=== PATIENT | female | born 1970 | race Caucasian/White ===

== ENCOUNTER 2025-02-12 07:19 | Emergency (ER) | payer MEDICAID, SELFPAY ==
[2025-02-12 07:19] VITALS: BMI 47.8
[2025-02-12 07:25] VITALS: BMI 45.6
[2025-02-12 07:26] VITALS: BP 150/94; PULSE 86; RESP 18; TEMP 36.5; O2SAT 98
--- NOTE | 2025-02-12 07:34 | XR_ITS ---
Examination: CT abdomen and pelvis without contrast. Coronal 3-D reconstructions. Sagittal 2-D reconstructions. Date and time of exam:February 12, 2025 0823 hours INDICATIONS: Epigastric pain beginning 2 days ago CTDI: vol (mGy): 23.7 DLP: (mGycm): 1404 Technique: Axial images of the abdomen have been obtained, 3 mm slice thickness Intravenous contrast material has not been administered. Low dose protocols were performed. One or more of the following dose reduction techniques were used; automated exposure control, adjustment of the mA and/or KV according to patient size, use of iterative reconstruction technique. Findings: Diffuse fatty infiltration throughout the liver Gastric sutures Hepatomegaly 20 cm Splenomegaly AP dimension 13 cm Absent gallbladder No pancreatic or adrenal mass No renal or ureteral calculi, no hydronephrosis Aorta normal size Colonic sutures Scarring in the lower anterior abdominal wall No pericecal inflammatory change No bowel obstruction or diverticulitis Absent uterus Contracted urinary bladder Prominent osteopenia Advanced disc narrowing L4-L5 IMPRESSION: Hepatosplenomegaly No renal or ureteral calculi, no hydronephrosis No CT findings of appendicitis or bowel obstruction
--- NOTE | 2025-02-12 07:34 | PD.EDRME ---
Rapid Medical Screening Exam E Arrival date/time: 02/12/25 07:19 54-year-old female with history of bowel obstruction and multiple surgeries presents with concerns for abdominal pain Chief Complaint: Abdominal Pain Vital signs: Vital Signs Temperature 97.7 F 02/12/25 07:26 Pulse Rate 86 02/12/25 07:26 Respiratory Rate 18 02/12/25 07:26 Blood Pressure 150/94 H 02/12/25 07:26 Pulse Oximetry (%) 98 02/12/25 07:26 Oxygen Delivery Method Room Air 02/12/25 07:26
[2025-02-12 08:11] LABS: Collection Type, Urine Clean Catch
[2025-02-12 08:19] LABS: Basophils # (Auto) 0.1 Thou/mm3 (0.0-0.2); Basophils % (Auto) 1 % (0-2.5); Eosinophils # (Auto) 0.2 Thou/mm3 (0.0-0.5); Eosinophils % (Auto) 2 % (0-10); Hematocrit 41.1 % (36.0-46.0); Hemoglobin 13.8 g/dL (12.0-16.0); Immature Granulocytes Auto 0.03 Thou/mm3 (0.00-0.00); Lymphocytes # (Auto) 2.3 Thou/mm3 (1.0-4.8); Lymphocytes % (Auto) 23 % (10-50); Mean Corpuscular HGB Conc 33.6 g/dl (31.0-37.0); Mean Corpuscular Hemoglobin 27.4 pg (25.0-35.0); Mean Corpuscular Volume 82 fL (80-100); Monocytes # (Auto) 0.7 Thou/mm3 (0.0-0.8); Monocytes % (Auto) 7 % (0-12); Neutrophils # (Auto) 6.5 Thou/mm3 (1.8-7.7); Neutrophils % (Auto) 66 % (37-80); Nucleated Red Blood Cell # 0.00 Thou/mm3 (0.00-0.00); Nucleated Red Blood Cell % 0 /100 WBC (0); Platelet Count 238 Thou/mm3 (140-440); RDW Standard Deviation 39.7 fL (36.4-46.3); Red Blood Count 5.03 Miln/mm3 (4.00-5.20); White Blood Count 9.8 Thou/mm3 (3.6-11.0)
[2025-02-12 08:20] LABS: Bilirubin,Urine Negative (Negative); Blood,Urine Negative (Negative); Clarity,Urine Clear (Clear/Hazy); Color,Urine Lt-Yellow (Lt Yel-Yel); Culture Indicated,Urine Not Indicated; Glucose, Urine Negative (Negative); Ketones,Urine Negative (Negative); Leukocyte Esterase,Urine Positive (Negative); Nitrite,Urine Negative (Negative); PH,Urine 6.0 (5.0-7.0); Protein,Urine Negative (Neg - Trace); RBC,Urine 1 /hpf (0-3); Specific Gravity,Urine 1.020 (1.001-1.035); Squamous Epithelial Cell,Urine 1 /hpf (0-5); Urobilinogen,Urine Negative mg/dL (0.0-1.0); WBC,Urine 3 /hpf (0-5)
[2025-02-12 08:31] LABS: Alanine Aminotransferase 15 U/L (10-49); Albumin, Serum 4.5 gm/dL (3.5-5.0); Albumin/Globulin Ratio 1.5 (1.2-2.2); Alkaline Phosphatase 146 U/L (46-116); Anion Gap 11 (7-16); Aspartate Amino Transferase 21 U/L (0-34); BUN/Creatinine Ratio 12 Ratio (12-20); Bilirubin,Total 0.5 mg/dL (0.3-1.2); Blood Urea Nitrogen 11 mg/dL (9-23); Calcium 9.1 mg/dL (8.3-10.6); Calcium (Corrected) 9.1 mg/dL (8.5-10.1); Carbon Dioxide 24.0 mMol/L (20.0-31.0); Chloride 105 mMol/L (98-107); Creatinine (Component) 0.9 mg/dL (0.6-1.3); Estimated Creatinine Clearance 95.7 mL/min (>60); Globulin 3.0 gm/dL (2.3-3.5); Glucose 108 mg/dL (74-106); Lipase 25 U/L (12-53); Osmolality,Calculated 279 (275-295); Potassium 4.1 mMol/L (3.4-5.1); Sodium 140 mMol/L (136-145); Total Protein 7.5 gm/dL (5.7-8.2); eGFR > 60 See Note
--- NOTE | 2025-02-12 09:23 | EDNOTE_ITS ---
ED General RME/HPI General Chief complaint: Abdominal Pain Stated complaint: BOWEL OBSTRUCTION Time Seen by Provider: 02/12/25 09:20 Arrival date/time: 02/12/25 07:19 RME / HPI RME / HPI narrative: 02/12/25 07:19 54-year-old female with history of bowel obstruction and multiple surgeries presents with concerns for abdominal pain Related Data Previous Rx's ?Medication ?Instructions ?Recorded ondansetron 8 mg disintegrating 8 mg PO Q8H PRN nausea and 02/12/25 tablet vomiting #30 tabs Allergies Allergy/AdvReac Type Severity Reaction Status Date / Time vancomycin Allergy Severe Hives Verified 02/12/25 09:22 Review of Systems Review of Systems Systems Reviewed: All systems reviewed, normal except as documented ED Exam Narrative Physical exam: GENERAL: NAD, AAOx3, obese HEENT: Moist mucosa. Eyes open, symmetrical, & clear CARDIO: Heart RRR, no obvious murmurs PULM: No noted coughing/dyspnea CTA B/L, no R/W/R GI: Abdomen soft, nondistended, all 4 quadrants with pain on palpation more pronounced in RLQ. hypoactive bowel sounds SKIN/MSK/EXT: No wounds/rashes/edema/amputations, no pain on palpation. Pedal pulses present B/L NEURO: AAOx3, no focal neuro deficits, able to move all 4 extremities Course Course Course Narrative: see MDM Quality Measures none Orders Category Date Time Status CT abdomen pelvis wo con Stat Exams 02/12/25 07:34 Completed CBC Stat Lab 02/12/25 08:02 Completed Comprehensive Metabolic Panel Stat Lab 02/12/25 08:02 Completed Lactic Acid [Lactate (Lactic Acid)] Stat Lab 02/12/25 09:50 Completed Lipase Stat Lab 02/12/25 08:02 Completed UA, C/S IF [Urinalysis, C/S if Indicated] Stat Lab 02/12/25 08:00 Completed Morphine Inj Med 02/12/25 09:28 Discontinued 4 mg IVP X1 ONE Ondansetron Inj [Zofran Inj] Med 02/12/25 09:56 Discontinued 4 mg IVP Q1H PRN Vital Signs Vital signs: Vital Signs Temperature 97.7 F 02/12/25 07:26 Pulse Rate 86 02/12/25 07:26 Respiratory Rate 18 07/15/25 07:26 Blood Pressure 150/94 H 02/12/25 07:26 Pulse Oximetry (%) 98 02/12/25 07:26 Oxygen Delivery Method Room Air 02/12/25 07:26 Discharge Plan Plan Patient Disposition: HOME (Self Care) Prescriptions/Referrals Prescriptions/Med Rec: New ondansetron 8 mg tablet,disintegrating 8 mg PO Q8H PRN (Reason: nausea and vomiting) Qty: 30 0RF Referrals: No Primary/Family,Physician [Primary Care Provider] - In 1 week Problem List Clinical Impression: Abdominal pain Patient/Caregiver Discharge Instructions Additional Instructions: Follow up with your primary care physician within 1 week of discharge Your work up here in the ER is negative including imaging studies, lab work You will be discharged with antinausea medications. Should your symptoms recur or worsen patient is instructed to return to the ER. Print Language: Albanian Stand Alone Forms: [facility] 911 Award Info., Patient Portal Info Letter MDM Narrative MDM hospital course: 54 y/o F with PMHx of Hypertension, multiple abdominal surgeries including: hernia repair, bowel resection, s/p ileostomy removal, ?Ulcerative colitis?, C- sections, hysterectomy, hx of SBO(x3) presented here to the ED due to abdominal pain. Patient states she woke up in the middle of the night with sudden onset abdominal pain across all 4 quadrants more pronounced in the lower quadrants. She also endorses some nausea and took some nausea meds at home but no vomiting. She endorses starting Wegovy shots around 3 weeks ago as well as recent surgery around 3 months ago. Denies fever, chills, chest pain, shortness of breath, vomiting, recent travel, sick contacts. 0932: CBC, CMP, UA unremarkable, CT abdomen pelvis pending, morphine 4mg IV x1 given 1038: CT abdomen pelvis negative for bowel obstruction, appendicitis All workup here in the ER negative symptoms have improved. Patient is able to be discharged safely at this time with strict return precautions Patient instructed to return to the ER should her symptoms recur or worsen. Clinical Information Provided by patient Medical Records Reviewed [facility] Lab Interpretation Labs: interpreted by me Lab(s) interpretation(s): CBC, CMP unremarkable Imaging Imaging interpretation: see narrative above Radiology reports / interpretation(s): See radiology report Medication Administration(s) Medication Administration History Discontinued Medications Morphine Sulfate (Morphine Sulf Inj 10 Mg/Ml Vial) 4 mg IVP X1 ONE Stop: 02/12/25 09:29 Last Admin: 02/12/25 09:41 Dose: 4 mg Documented By: VL Ondansetron HCl (Ondansetron Inj 2 Mg/Ml Inj 2 Ml) 4 mg IVP Q1H PRN PRN Reason: PERSISTENT NAUSEA OR VOMITING Last Admin: 02/12/25 10:23 Dose: 4 mg Documented By: VL See above Diagnosis Differential diagnosis: SBO, peritonitis, stool impaction Dispositon Disposition: Discharge Home
[2025-02-12] MEDS: MORPHINE SULF INJ 10 MG/ML VIAL 4 MG IVP (09:41)
[2025-02-12 09:44] VITALS: BP 122/71; PULSE 84; RESP 19; TEMP 36.8; O2SAT 100
[2025-02-12 09:56] LABS: Lactate (Lactic Acid) 1.3 mMol/L (0.4-2.0)
[2025-02-12 10:07] VITALS: BP 113/84; PULSE 79; RESP 19; TEMP 36.7; O2SAT 100
[2025-02-12] MEDS: ONDANSETRON INJ 2 MG/ML INJ 2 ML 4 MG IVP (10:23)
== END 2025-02-12 11:30 | disposition home or self-care (01) ==
PROVIDERS: Nurse Practitioner Primary Care; Emergency Provider Student in an Organized Health Care Education/Training Program
DX: R10.84 Generalized abdominal pain (principal); R16.2 Hepatomegaly with splenomegaly, not elsewhere classified
CPT/HCPCS: 36415; 74176; 80053; 81001; 83605; 83690; 85025; 96374; 96375; 99283; J2270; J2405

== ENCOUNTER 2025-02-16 11:24 | Emergency (ER) | payer MEDICAID, SELFPAY ==
[2025-02-16 11:50] VITALS: BP 158/84; PULSE 90; RESP 19; TEMP 36.9; O2SAT 99; BMI 50.4
--- NOTE | 2025-02-16 11:59 | XR_ITS ---
Examination: PA lateral chest 2 views Technique: Upright PA lateral chest 2 views Date and time: February 16, 2025, 12:24 PM Indications: Shortness of breath coughing beginning 2 days ago. Findings: Heart size. The lungs are clear. Moderate osteopenia. Impression: No active disease.
[2025-02-16] MEDS: ALBUTEROL/IPRATROPIUM (Duoneb) RT SOL 3 ML NEBU INH (12:45)
[2025-02-16 12:49] VITALS: PULSE 92; RESP 18; O2SAT 100
--- NOTE | 2025-02-16 13:32 | EDNOTE_ITS ---
Upper Respiratory Inf. RME/HPI General Chief Complaint: Flu Like Symptoms Stated Complaint: Cough, sinuses hurt Time Seen by Provider: 02/16/25 11:35 Source: patient Arrival date/time: 02/16/25 11:24 This is a 54-year-old female presents to the emergency department complaints of intermittent cough, sinus congestion for 3 days. Denies fever, chills no rigors. Mode of arrival: ambulatory Related Data Previous Rx's ?Medication ?Instructions ?Recorded ondansetron 8 mg disintegrating 8 mg PO Q8H PRN nausea and 02/12/25 tablet vomiting #30 tabs amoxicillin 875 mg-potassium 1 tab PO BID #14 tabs clavulanate 125 mg tablet promethazine-DM 6.25 mg-15 mg/5 mL 5 ml PO Q6H PRN cou gh #473 mL 02/16/25 oral syrup Allergies Allergy/AdvReac Type Severity Reaction Status Date / Time vancomycin Allergy Severe Hives Verified 02/16/25 11:26 Review of Systems Review of Systems Systems Reviewed: All systems reviewed, normal except as documented Narrative Review of Systems: Gen: No fever, no chills, no weight loss EYES: No discharge, no visual changes, no pain HEENT: No ear pain, no congestion, no sore throat PULM: + shortness of breath, +cough, no congestion CV: No chest pain, no dyspnea on exertion, no palpitations GI: No nausea, no vomiting, no diarrhea, no pain, no constipation : No frequency, no urgency,? no dysuria Musc/skel: No joint pain, no back pain Skin: No rash? Psyc: No hallucinations, no depression Heme/Lymph: No easy bleeding or bruising tendencies Neuro: No weakness, no headache ED Exam Narrative Physical exam: General: Sittiing in Exam table in no acute distress, answering questions appropriately HENT: normocephalic, atraumatic, EOMI, PERRLA, moist mucous membranes Chest: chest wall is nontender Cardiac: regular rate and rhythm, normal S1 and S2, no murmurs, rubs, or gallops, capillary refill ?2 seconds Pulmonary: clear to auscultation bilaterally, no wheezing, crackles, or rhonchi Abdominal: active bowel sounds, soft, nontender, nondistended Neuro: A&OX3, CN II-XII intact, sensation grossly intact bilaterally in UE and LE. Skin: no rashes, no ecchymosis Ext: no lower extremity edema Course Quality Measures none Orders Category Date Time Status Bedside COVID-19 Antigen Test NOW Care 02/16/25 11:59 Completed XR chest 2V Stat Exams 02/16/25 11:59 Completed Albuterol/Ipratr Rt Ghazala [Duoneb Rt Ghazala] Med 02/16/25 11:59 Discontinued 3 ml INH X1 ONE predniSONE Med 02/16/25 11:59 Discontinued 60 mg PO X1 ONE Vital Signs Vital signs: Vital Signs Temperature 98.5 F 02/16/25 11:50 Pulse Rate 90 02/16/25 11:50 Respiratory Rate 19 02/16/25 11:50 Blood Pressure 158/84 H 02/16/25 11:50 Pulse Oximetry (%) 99 02/16/25 11:50 Oxygen Delivery Method Room Air 02/16/25 11:50 Upper Respiratory Infection Patient data External records reviewed:: [facility] previous records Clinical information provided by:: patient Social determinants that could affect healthcare access:: none Patient has the following chronic illnesses:: no How is presenting disease/condition affected by chronic disease/condition?: no chronic disease Evaluation data The following diagnostics were reviewed and interpreted by me:: lab results Lab and/or radiology exams considered but not ordered:: no Interpretation Summary: Mild bronchitis pattern pending radiologist reading. Examination: PA lateral chest 2 views Technique: Upright PA lateral chest 2 views Date and time: February 16, 2025, 12:24 PM Indications: Shortness of breath coughing beginning 2 days ago. Findings: Heart size. The lungs are clear. Moderate osteopenia. Impression: No active disease. Medications / Prescriptions Medications or Prescriptions considered but not ordered:: no Medication administrations:: Medication Administration History Discontinued Medications Albuterol/Ipratropium (Albuterol/Ipratropium (Duoneb) Rt Ghazala 3 Ml Nebu) 3 ml INH X1 ONE Stop: 02/16/25 12:00 Last Admin: 02/16/25 12:45 Dose: 3 ml Documented By: ANGELI Prednisone (Prednisone 20 Mg Tablet) 60 mg PO X1 ONE Stop: 02/16/25 12:00 Last Admin: 02/16/25 12:46 Dose: 60 mg Documented By: MARIA ELENA All medications administered and effective Consultations Consultation(s) initiated? (list below): No Diagnosis Upper Respiratory Differential Diagnosis: upper respiratory infection, sinusitis, viral infection, bronchitis, influenza and pharyngitis Most likely diagnosis given after review of the tests above:: Bronchitis. Admission Indicated Admission indicated?: not indicated Admission Request Was there a request for admission?: No Disposition Plan Disposition Plan: Discharge Discharge Attestation Discharge Attestation: The patient and all family members were given an opportunity to ask questions and understood the discharge instructions. Discharge instructions specifically effects, indications for sooner follow up or return to the emergency department, and the expected course of current diagnosis. Patient condition: Stable Discharge Plan Plan Patient Disposition: HOME (Self Care) Prescriptions/Referrals Prescriptions/Med Rec: New amoxicillin-pot clavulanate 875-125 mg tablet 1 tab PO BID Qty: 14 0RF promethazine-DM 6.25-15 mg/5 mL syrup 5 ml PO Q6H PRN (Reason: cough) Qty: 473 0RF No Action ondansetron 8 mg tablet,disintegrating 8 mg PO Q8H PRN (Reason: nausea and vomiting) Qty: 30 0RF Referrals: No Primary/Family,Physician [Primary Care Provider] - In 1 week Problem List Clinical Impression: Bronchitis Patient/Caregiver Discharge Instructions Discharge Activity: activity as tolerated Education Materials: ED Upper Resp Infec Abx Tx Additional Instructions: Please make sure you follow-up with your primary doctor. Start antibiotics as directed. Cough syrup was sent to the pharmacy. If any worsening symptoms please return to the emergency department for reevaluation. Print Language: Yoruba Stand Alone Forms: [facility] Award Info., Patient Portal Info Letter PA/EVIDENCE SPECIALIST Supervising Physician PA/JOHN Supervising Physician: Dr mock
== END 2025-02-16 14:23 | disposition home or self-care (01) ==
PROVIDERS: Emergency Provider Family Medicine
DX: J40 Bronchitis, not specified as acute or chronic (principal)
CPT/HCPCS: 71046; 87811; 94640; 99283; A9270; J7512

== ENCOUNTER 2025-02-19 13:53 | Emergency (ER) | payer MEDICAID, SELFPAY ==
[2025-02-19 14:44] VITALS: BP 149/75; PULSE 115; RESP 18; TEMP 36.8; O2SAT 97; BMI 48.6
--- NOTE | 2025-02-19 14:54 | XR_ITS ---
Examination: PA lateral chest 2 views TECHNIQUE: Upright PA lateral chest 2 views Date and time: February 19, 2025 1501 hours INDICATIONS: Coughing chest pain beginning one week ago FINDINGS: Normal heart size. Lungs are clear. The osseous structures are intact IMPRESSION: No active disease
--- NOTE | 2025-02-19 14:54 | EKG_ITS ---
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
--- NOTE | 2025-02-19 14:54 | PD.EDRME ---
Rapid Medical Screening Exam E Arrival date/time: 02/19/25 13:53 54-year-old female presents emergency department today for complaint of cough, congestion body aches sinus pressure and pain ongoing for the last 3 days Chief Complaint: Flu Like Symptoms Vital signs: Vital Signs Temperature 98.2 F 02/19/25 14:44 Pulse Rate 115 H 02/19/25 14:44 Respiratory Rate 18 02/19/25 14:44 Blood Pressure 149/75 H 02/19/25 14:44 Pulse Oximetry (%) 97 02/19/25 14:44 Oxygen Delivery Method Room Air 02/19/25 14:44
[2025-02-19 16:18] LABS: Basophils # (Auto) 0.1 Thou/mm3 (0.0-0.2); Basophils % (Auto) 1 % (0-2.5); Eosinophils # (Auto) 0.3 Thou/mm3 (0.0-0.5); Eosinophils % (Auto) 2 % (0-10); Hematocrit 39.3 % (36.0-46.0); Hemoglobin 13.4 g/dL (12.0-16.0); Immature Granulocytes Auto 0.04 Thou/mm3 (0.00-0.00); Lymphocytes # (Auto) 2.7 Thou/mm3 (1.0-4.8); Lymphocytes % (Auto) 22 % (10-50); Mean Corpuscular HGB Conc 34.1 g/dl (31.0-37.0); Mean Corpuscular Hemoglobin 27.7 pg (25.0-35.0); Mean Corpuscular Volume 81 fL (80-100); Monocytes # (Auto) 1.0 Thou/mm3 (0.0-0.8); Monocytes % (Auto) 8 % (0-12); Neutrophils # (Auto) 8.4 Thou/mm3 (1.8-7.7); Neutrophils % (Auto) 67 % (37-80); Nucleated Red Blood Cell # 0.00 Thou/mm3 (0.00-0.00); Nucleated Red Blood Cell % 0 /100 WBC (0); Platelet Count 292 Thou/mm3 (140-440); RDW Standard Deviation 39.9 fL (36.4-46.3); Red Blood Count 4.84 Miln/mm3 (4.00-5.20); White Blood Count 12.6 Thou/mm3 (3.6-11.0)
[2025-02-19 16:39] LABS: Alanine Aminotransferase 14 U/L (10-49); Albumin, Serum 4.6 gm/dL (3.5-5.0); Albumin/Globulin Ratio 1.5 (1.2-2.2); Alkaline Phosphatase 164 U/L (46-116); Anion Gap 11 (7-16); Aspartate Amino Transferase 13 U/L (0-34); BUN/Creatinine Ratio 11 Ratio (12-20); Bilirubin,Total 0.5 mg/dL (0.3-1.2); Blood Urea Nitrogen 10 mg/dL (9-23); Calcium 9.4 mg/dL (8.3-10.6); Calcium (Corrected) 9.4 mg/dL (8.5-10.1); Carbon Dioxide 28.2 mMol/L (20.0-31.0); Chloride 100 mMol/L (98-107); Creatinine (Component) 0.9 mg/dL (0.6-1.3); Estimated Creatinine Clearance 89.6 mL/min (>60); Globulin 3.1 gm/dL (2.3-3.5); Glucose 101 mg/dL (74-106); Osmolality,Calculated 276 (275-295); Potassium 3.3 mMol/L (3.4-5.1); Sodium 139 mMol/L (136-145); Total Protein 7.7 gm/dL (5.7-8.2); Troponin I < 0.002 ng/mL (0.0-0.045); eGFR > 60 See Note
[2025-02-19 20:24] VITALS: BP 158/91; PULSE 98; RESP 18; TEMP 36.6; O2SAT 98
--- NOTE | 2025-02-19 20:34 | PD.EDURI ---
Upper Respiratory Inf. RME/HPI General Chief Complaint: Flu Like Symptoms Stated Complaint: Cough, sinus pain Time Seen by Provider: 02/19/25 20:22 Arrival date/time: 02/19/25 13:53 Limitations: no limitations RME / HPI RME / HPI Narrative: 54-year-old female history of asthma is here today with a 6-day history of sinus congestion cough, and wheezing. She seen here 3 days ago and discharged with a prescription of Augmentin. She is here today as her symptoms have not resolved. She has no other acute complaints or concerns. Related Data Previous Rx's ?Medication ?Instructions ?Recorded ondansetron 8 mg disintegrating 8 mg PO Q8H PRN nausea and 02/12/25 tablet vomiting #30 tabs amoxicillin 875 mg-potassium 1 tab PO BID #14 tabs 02/16/25 clavulanate 125 mg tablet promethazine-DM 6.25 mg-15 mg/5 mL 5 ml PO Q6H PRN cough #473 mL 02/16/25 oral syrup ipratropium 0.5 mg-albuterol 3 mg 3 ml inhalation QID PRN wheezing 02/19/25 (2.5 mg base)/3 mL nebulization #90 mL soln prednisone 50 mg tablet 50 mg PO QDAY #5 tabs 02/19/25 Allergies Allergy/AdvReac Type Severity Reaction Status Date / Time vancomycin Allergy Severe Hives Verified 02/19/25 13:57 Review of Systems Review of Systems Systems Reviewed: All systems reviewed, normal except as documented ED Exam General Limitations: Present no limitations General appearance: Present alert and in no apparent distress Head Head exam: Present atraumatic Eye Eye exam: Present normal appearance, PERRL and EOMI ENT ENT exam: Present normal exam, normal oropharynx and mucous membranes moist Neck Neck exam: Present normal inspection, full ROM and trachea midline Chest Chest inspection: Present normal inspection and symmetric chest wall rise Respiratory Respiratory exam: Present normal lung sounds bilaterally Cardiovascular Cardiovascular exam: Present regular rate, normal rhythm and normal heart sounds Abdominal Exam Abdominal exam: Present soft and normal bowel sounds Extremities Exam Extremities exam: Present normal inspection and full ROM Back Exam Back exam: Present normal inspection and full ROM Neurological Exam Neurological exam: Present alert and oriented X3 Psychiatric Psychiatric exam: Present normal affect and normal mood Skin Skin exam: Present warm, dry, intact and normal color Course Quality Measures none Orders Category Date Time Status Bedside COVID-19 Antigen Test NOW Care 02/19/25 14:54 Active Bedside Influenza A&B Antigen Test NOW Care 02/19/25 14:54 Completed EKG (ED ONLY) *Do not use* NOW Care 02/19/25 14:54 Completed EKG (ED Only) Stat Exams 02/19/25 14:54 Draft XR chest 2V Stat Exams 02/19/25 14:54 Completed CBC Stat Lab 02/19/25 16:00 Completed Comprehensive Metabolic Panel Stat Lab 02/19/25 16:00 Completed Troponin I Stat Lab 02/19/25 16:00 Completed Vital Signs Vital signs: Vital Signs Temperature 98.2 F 02/19/25 14:44 Pulse Rate 115 H 02/19/25 14:44 Respiratory Rate 18 02/19/25 14:44 Blood Pressure 149/75 H 02/19/25 14:44 Pulse Oximetry (%) 97 02/19/25 14:44 Oxygen Delivery Method Room Air 02/19/25 14:44 Upper Respiratory Infection MDM Narrative MDM Narrative:: 54-year-old female history of asthma is here today with a 6-day history of sinus congestion cough, and wheezing. She seen here 3 days ago and discharged with a prescription of Augmentin. She is here today as her symptoms have not resolved. She has no other acute complaints or concerns. On exam patient is nontoxic-appearing in no visible signs of distress. She has no respiratory compromise. She has very mild expiratory wheezes. Reviewed the past chart notes and believe her care is appropriate. Patient did request refills of her DuoNeb. She will also be discharged with a prescription of a 5-day burst of prednisone. She agrees to use a provide medications. Return for worse emergent changes Patient data External records reviewed:: None Clinical information provided by:: patient Social determinants that could affect healthcare access:: none Patient has the following chronic illnesses:: Asthma How is presenting disease/condition affected by chronic disease/condition?: exacerbated by Evaluation data The following diagnostics were reviewed and interpreted by me:: lab results (She has a mild leukocytosis of 12.6 K, labs are otherwise unremarkable), radiology exam(s) (Clear and expanded lungs without any mass or infiltrate) and EKG tracing(s) (Status tachycardia [address] changes dynamic T waves.) Lab and/or radiology exams considered but not ordered:: n/a Interpretation Summary: Mild leukocytosis, otherwise unremarkable, COVID and influenza screens are negative Medications / Prescriptions Medications or Prescriptions considered but not ordered:: n/a Medication administrations:: n/a Consultations Consultation(s) initiated? (list below): No Diagnosis Upper Respiratory Differential Diagnosis: upper respiratory infection, sinusitis, viral infection, bronchitis and influenza Most likely diagnosis given after review of the tests above:: Acute bronchitis Admission Indicated Admission indicated?: not indicated Admission Request Was there a request for admission?: No Disposition Plan Disposition Plan: Discharge Discharge Attestation Discharge Attestation: The patient and all family members were given an opportunity to ask questions and understood the discharge instructions. Discharge instructions specifically effects, indications for sooner follow up or return to the emergency department, and the expected course of current diagnosis. Patient condition: Stable Discharge Plan Plan Patient Disposition: HOME (Self Care) Patient condition on transfer: Stable Prescriptions/Referrals Prescriptions/Med Rec: New prednisone 50 mg tablet 50 mg PO QDAY Qty: 5 0RF ipratropium-albuterol 0.5 mg-3 mg(2.5 mg base)/3 mL solution for nebulization 3 ml inhalation QID PRN (Reason: wheezing) Qty: 90 0RF No Action ondansetron 8 mg tablet,disintegrating 8 mg PO Q8H PRN (Reason: nausea and vomiting) Qty: 30 0RF amoxicillin-pot clavulanate 875-125 mg tablet 1 tab PO BID Qty: 14 0RF promethazine-DM 6.25-15 mg/5 mL syrup 5 ml PO Q6H PRN (Reason: cough) Qty: 473 0RF Referrals: No Primary/Family,Physician [Primary Care Provider] - In 1 week Problem List Clinical Impression: Acute bronchitis Patient/Caregiver Discharge Instructions Education Materials: Acute Bronchitis Additional Instructions: - Continue taking your prescribed antibiotics. - We will provide refills for your nebulizer. - We will also start you on a 5-day course of prednisone. - Please follow-up with your clinic within the next week for recheck. - Return to the emergency room at anytime for any worsening or emergent changes. Print Language: Ecuadorean Stand Alone Forms: [facility] Award Info., Patient Portal Info Letter
[2025-02-19 20:43] VITALS: PULSE 76; O2SAT 99
== END 2025-02-19 20:43 | disposition home or self-care (01) ==
PROVIDERS: Nurse Practitioner Primary Care; Emergency Provider Emergency Medicine
DX: J20.9 Acute bronchitis, unspecified (principal); R94.31 Abnormal electrocardiogram [ECG] [EKG]; R00.0 Tachycardia, unspecified
CPT/HCPCS: 36415; 71046; 80053; 84484; 85025; 87400; 87811; 93005; 99283

== ENCOUNTER 2025-02-26 19:59 | Emergency (ER) | payer MEDICAID, SELFPAY ==
[2025-02-26 20:00] VITALS: BMI 47.8
[2025-02-26 20:23] VITALS: BP 150/98; PULSE 89; RESP 20; TEMP 37.1; O2SAT 98
--- NOTE | 2025-02-26 21:23 | PD.EDADULT ---
ED General RME/HPI General Chief complaint: General Adult/Misc Complain Stated complaint: COUGH, HEADACHE Time Seen by Provider: 02/26/25 20:49 Arrival date/time: 02/26/25 19:59 RME / HPI RME / HPI narrative: 54-year-old female presents to the ED for her third visit for sinus issues for the past 10 days. She took a course of Augmentin, twice daily for 1 week. She is also using DuoNeb and her nebulizer twice daily. She was given a burst therapy of prednisone 50 mg daily x 5 days. She continues to have severe nasal and sinus congestion with bad cough and the feeling of passing out after she coughs. She is also feeling some tingling to her face after spasmodic coughing attacks. She is only using her albuterol inhaler, twice daily. She takes Angelica once daily as well as Singulair once daily in the evening. She does not use any nasal sprays. She denies any fever or chills, ear pain or sore throat. She states her cough is positive for white to yellow sputum production. Related Data Previous Rx's ?Medication ?Instructions ?Recorded ondansetron 8 mg disintegrating 8 mg PO Q8H PRN nausea and 02/12/25 tablet vomiting #30 tabs amoxicillin 875 mg-potassium 1 tab PO BID #14 tabs 02/16/25 clavulanate 125 mg tablet promethazine-DM 6.25 mg-15 mg/5 mL 5 ml PO Q6H PRN cough #473 mL 02/16/25 oral syrup ipratropium 0.5 mg-albuterol 3 mg 3 ml inhalation QID PRN wheezing 02/19/25 (2.5 mg base)/3 mL nebulization #90 mL soln prednisone 50 mg tablet 50 mg PO QDAY #5 tabs 02/19/25 fluticasone propionate 50 2 spray intranasal QDAY #11 mL 02/26/25 mcg/actuation nasal spray,suspension (Flonase Allergy Relief) levofloxacin 500 mg tablet 500 mg PO Q24H 14 days #14 tabs 02/26/25 Allergies Allergy/AdvReac Type Severity Reaction Status Date / Time vancomycin Allergy Severe Hives Verified 02/26/25 19:59 Review of Systems Review of Systems Systems Reviewed: All systems reviewed, normal except as documented Past Medical History Past Medical History CARDIAC: Positive Hypertension; Negative Congestive Heart Failure RESPIRATORY: Positive Asthma; Negative Chronic Obstructive Pulmonary Disease (COPD) GASTROINTESTINAL: Positive Ulcerative Colitis, Obstructive Bowel (x3) and Gastroesophageal Reflux Disease GENITOURINARY: Negative Renal Disease ENDOCRINE: Negative Diabetes Mellitus Type 1 or Diabetes Mellitus Type 2 OTHER HISTORY: Negative Cancer Surgical History SURGICAL: Positive Abdominal Surgery (ileostomy) and Hysterectomy Social History SMOKING STATUS: Never smoker ED Exam Narrative Physical exam: A&O, afebrile and non-toxic appearing 54-year-old female, mild acute distress. TMs are without erythema. Nares are very swollen with erythema. Tender maxillary and frontal sinuses bilaterally. Lung sounds are clear, RRR, Abdomen is non-distended. Moves all extremities well. Course Course Course Narrative: Patient has failed outpatient treatment with Augmentin 875 mg twice daily for 7 days, as well as prednisone 50 mg p.o. daily x 5 days. Patient will be changed to Levaquin 500 mg once daily for 10 days. She will also be given a prescription for Flonase nasal spray. She was advised to take the Angelica in the morning and Benadryl at bedtime. She was also advised to utilize her albuterol inhaler more often to help control her cough. She has had 2 chest x-rays in the past 10 days which were both negative for acute disease. She has been tested for COVID and influenza on 02/19/2025 which were all negative. Patient was given her first dose of Levaquin 500 mg prior to her discharge. Quality Measures none Vital Signs Vital signs: Vital Signs Temperature 98.8 F 02/26/25 20:23 Pulse Rate 89 02/26/25 20:23 Respiratory Rate 20 02/26/25 20:23 Blood Pressure 150/98 H 02/26/25 20:23 Pulse Oximetry (%) 98 02/26/25 20:23 Oxygen Delivery Method Room Air 02/26/25 20:23 Discharge Plan Plan Patient Disposition: HOME (Self Care) Discharge Disposition comment: Stable Prescriptions/Referrals Prescriptions/Med Rec: New levofloxacin 500 mg tablet 500 mg PO Q24H 14 Days Qty: 14 0RF fluticasone propionate [Flonase Allergy Relief] 50 mcg/actuation spray,suspension 2 spray intranasal QDAY Qty: 11 0RF Rx Instructions: administer into each nostril No Action prednisone 50 mg tablet 50 mg PO QDAY Qty: 5 0RF ipratropium-albuterol 0.5 mg-3 mg(2.5 mg base)/3 mL solution for nebulization 3 ml inhalation QID PRN (Reason: wheezing) Qty: 90 0RF ondansetron 8 mg tablet,disintegrating 8 mg PO Q8H PRN (Reason: nausea and vomiting) Qty: 30 0RF amoxicillin-pot clavulanate 875-125 mg tablet 1 tab PO BID Qty: 14 0RF promethazine-DM 6.25-15 mg/5 mL syrup 5 ml PO Q6H PRN (Reason: cough) Qty: 473 0RF Referrals: No Primary/Family,Physician [Primary Care Provider] - In 1 week Problem List Clinical Impression: Sinusitis Patient/Caregiver Discharge Instructions Education Materials: ED Sinusitis (Antibiotic Treatment) Additional Instructions: Take the antibiotics as prescribed and complete the course even though you may be feeling better. Follow-up with your primary care physician in 24 to 48 hours. Return to the ED for any new or worsening symptoms. Print Language: [place] Stand Alone Forms: [employer] Info., Patient Portal Info Letter PA/BUSINESS OFFICE TECHNOLOGY INSTRUCTOR Supervising Physician PA/BUSINESS OFFICE TECHNOLOGY INSTRUCTOR Supervising Physician: Dr. Fernandez [facility] Narrative [facility] hospital course: Symptoms, exam and diagnostic studies are consistent with: Acute maxillary and frontal sinusitis, failed outpatient treatment with Augmentin. Patient was discharged home in stable condition, with prescriptions for Levaquin 500 mg daily for 10 days as well as Flonase nasal spray. Patient/family advised to follow-up with their PCP in 24-48 hours. Encouraged to return to the ED for any new or worsening symptoms. Clinical Information Provided by patient Medical Records Reviewed None Meds/Rx Considered, not Ordered None Describe details: N/A Labs/Rad/Tests considered, not Ordered None Describe details: Reviewed lab test and chest x-rays from previous visits x 2 in the past 10 days. Chronic Illness/Social Conditions Add or document further as needed: Chronic allergies and asthma for which she takes Angelica and Singulair. EKG EKG not done EKG Interpretation narrative: N/A Lab Interpretation Labs: none Lab(s) interpretation(s): N/A Imaging Imaging interpretation: none Radiology reports / interpretation(s): Previous XR chest results reviewed and are both negative for active disease. Medication Administration(s) Levaquin 500 mg 1 tab. Diagnosis Differential diagnosis: Chronic sinusitis, acute sinusitis with tx failure, asthma exacerbation Most likely dx, and/or detailed dx discussion: Acute sinusitis with treatment failure Dispositon Disposition: Discharge Home
[2025-02-26] MEDS: LEVOFLOXACIN 250 MG TABLET 500 MG PO (21:55)
== END 2025-02-26 22:09 | disposition home or self-care (01) ==
PROVIDERS: Emergency Provider Emergency Medicine
DX: J32.9 Chronic sinusitis, unspecified (principal)
CPT/HCPCS: 99282; A9270

== ENCOUNTER 2025-03-03 13:23 | Emergency (ER) | payer MEDICAID, SELFPAY ==
[2025-03-03 13:24] VITALS: BMI 46.9
[2025-03-03 13:38] VITALS: BP 152/83; PULSE 84; RESP 18; TEMP 36.8; O2SAT 98
--- NOTE | 2025-03-03 13:45 | EKG_ITS ---
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
--- NOTE | 2025-03-03 13:45 | XR_ITS ---
Examination: PA chest lateral 2 views Technique: Upright PA lateral chest 2 views Date and time: March 03, 2025, 1420 hrs., Comparison February 19, 2025 Indications: Chest pain today. Findings: Normal heart size. The lungs are clear. The osseous structures are intact. Impression: No active disease.
--- NOTE | 2025-03-03 13:46 | PD.EDRME ---
Rapid Medical Screening Exam E Arrival date/time: 03/03/25 13:23 54-year-old female with no known medical history presents to the emergency room with a chief complaint of a cough, congestion, fevers x 1 week. Patient also states she is having near syncopal episodes, dizziness, and fatigue. Patient states she was recently diagnosed with sinusitis. I have greeted and performed a focused initial assessment of this patient. A comprehensive ED assessment and evaluation of the patient, analysis of all test results, and completion of the medical decision making process will be conducted by additional ED providers. Chief Complaint: Flu Like Symptoms Time Seen by Provider: 03/03/25 13:37 Vital signs: Vital Signs Temperature 98.2 F 03/03/25 13:38 Pulse Rate 84 03/03/25 13:38 Respiratory Rate 18 03/03/25 13:38 Blood Pressure 152/83 H 03/03/25 13:38 Pulse Oximetry (%) 98 03/03/25 13:38 Oxygen Delivery Method Room Air 03/03/25 13:38 Vital signs reviewed by provider: Yes
[2025-03-03 14:39] LABS: Basophils # (Auto) 0.1 Thou/mm3 (0.0-0.2); Basophils % (Auto) 1 % (0-2.5); Eosinophils # (Auto) 0.3 Thou/mm3 (0.0-0.5); Eosinophils % (Auto) 3 % (0-10); Hematocrit 41.8 % (36.0-46.0); Hemoglobin 13.2 g/dL (12.0-16.0); Immature Granulocytes Auto 0.07 Thou/mm3 (0.00-0.00); Lymphocytes # (Auto) 3.1 Thou/mm3 (1.0-4.8); Lymphocytes % (Auto) 29 % (10-50); Mean Corpuscular HGB Conc 31.6 g/dl (31.0-37.0); Mean Corpuscular Hemoglobin 27.0 pg (25.0-35.0); Mean Corpuscular Volume 86 fL (80-100); Monocytes # (Auto) 1.0 Thou/mm3 (0.0-0.8); Monocytes % (Auto) 10 % (0-12); Neutrophils # (Auto) 6.1 Thou/mm3 (1.8-7.7); Neutrophils % (Auto) 58 % (37-80); Nucleated Red Blood Cell # 0.00 Thou/mm3 (0.00-0.00); Nucleated Red Blood Cell % 0 /100 WBC (0); Platelet Count 265 Thou/mm3 (140-440); RDW Standard Deviation 43.3 fL (36.4-46.3); Red Blood Count 4.88 Miln/mm3 (4.00-5.20); White Blood Count 10.6 Thou/mm3 (3.6-11.0)
[2025-03-03 14:56] LABS: B-Type Natriuretic Peptide < 20 pg/mL (0-100)
[2025-03-03 15:03] LABS: Collection Type, Urine Clean Catch
[2025-03-03 15:08] LABS: Alanine Aminotransferase 7 U/L (10-49); Albumin, Serum 4.3 gm/dL (3.5-5.0); Albumin/Globulin Ratio 1.7 (1.2-2.2); Alkaline Phosphatase 133 U/L (46-116); Anion Gap 10 (7-16); Aspartate Amino Transferase 12 U/L (0-34); BUN/Creatinine Ratio 11 Ratio (12-20); Bilirubin,Total 0.4 mg/dL (0.3-1.2); Blood Urea Nitrogen 10 mg/dL (9-23); Calcium 9.0 mg/dL (8.3-10.6); Calcium (Corrected) 9.0 mg/dL (8.5-10.1); Carbon Dioxide 28.9 mMol/L (20.0-31.0); Chloride 104 mMol/L (98-107); Creatinine (Component) 0.9 mg/dL (0.6-1.3); Estimated Creatinine Clearance 87.6 mL/min (>60); Globulin 2.5 gm/dL (2.3-3.5); Glucose 88 mg/dL (74-106); Magnesium 2.2 mg/dL (1.6-2.6); Osmolality,Calculated 282 (275-295); Potassium 4.0 mMol/L (3.4-5.1); Sodium 143 mMol/L (136-145); Total Protein 6.8 gm/dL (5.7-8.2); Troponin I < 0.002 ng/mL (0.0-0.045); eGFR > 60 See Note
[2025-03-03 15:18] LABS: Bilirubin,Urine Negative (Negative); Blood,Urine Negative (Negative); Clarity,Urine Clear (Clear/Hazy); Color,Urine Lt-Yellow (Lt Yel-Yel); Glucose, Urine Negative (Negative); Ketones,Urine Negative (Negative); Leukocyte Esterase,Urine Negative (Negative); Nitrite,Urine Negative (Negative); PH,Urine 7.0 (5.0-7.0); Protein,Urine Negative (Neg - Trace); RBC,Urine < 1 /hpf (0-3); Specific Gravity,Urine 1.016 (1.001-1.035); Squamous Epithelial Cell,Urine 3 /hpf (0-5); Urobilinogen,Urine Negative mg/dL (0.0-1.0); WBC,Urine < 1 /hpf (0-5)
[2025-03-03 15:47] VITALS: BP 168/102; PULSE 99; RESP 19; TEMP 37.3; O2SAT 98
--- NOTE | 2025-03-03 17:15 | PD.EDADULT ---
ED General RME/HPI General Chief complaint: Flu Like Symptoms Stated complaint: SINUS INFECTION, COUGH Time Seen by Provider: 03/03/25 13:37 Arrival date/time: 03/03/25 13:23 RME / HPI RME / HPI narrative: 03/03/25 13:23 54-year-old female with no known medical history presents to the emergency room with a chief complaint of a cough, congestion, fevers x 1 week. Patient also states she is having near syncopal episodes, dizziness, and fatigue. Patient states she was recently diagnosed with sinusitis. I have greeted and performed a focused initial assessment of this patient. A comprehensive ED assessment and evaluation of the patient, analysis of all test results, and completion of the medical decision making process will be conducted by additional ED providers. 54-year-old female with past medical history of asthma and hypertension came into the ED due to 2 weeks of ongoing congestion, cough, and facial pressure which have not subsided even with antibiotics. Patient stated that she recently finished a course of amoxicillin for around 5 days, but this does not help. She also came into the ED again around 5 days ago and she stated that she was placed on Levaquin at this time. She stated that today she is on day 5 of Levaquin, but is still having some facial pressure and congestion. Otherwise denies any fevers, chills, blood in in the sputum, dysuria, or changes in bowel movements. Denies any smoking, drugs, alcohol. Related Data Previous Rx's ?Medication ?Instructions ?Recorded ondansetron 8 mg disintegrating 8 mg PO Q8H PRN nausea and 02/12/25 tablet vomiting #30 tabs amoxicillin 875 mg-potassium 1 tab PO BID #14 tabs 02/16/25 clavulanate 125 mg tablet promethazine-DM 6.25 mg-15 mg/5 mL 5 ml PO Q6H PRN cough #473 mL 02/16/25 oral syrup ipratropium 0.5 mg-albuterol 3 mg 3 ml inhalation QID PRN wheezing 02/19/25 (2.5 mg base)/3 mL nebulization #90 mL soln prednisone 50 mg tablet 50 mg PO QDAY #5 tabs 02/19/25 fluticasone propionate 50 2 spray intranasal QDAY #11 mL 02/26/25 mcg/actuation nasal spray,suspension (Flonase Allergy Relief) levofloxacin 500 mg tablet 500 mg PO Q24H 14 days #14 tabs 02/26/25 Allergies Allergy/AdvReac Type Severity Reaction Status Date / Time vancomycin Allergy Severe Hives Verified 03/03/25 13:25 Review of Systems Review of Systems Systems Reviewed: All systems reviewed, normal except as documented Past Medical History Past Medical History CARDIAC: Positive Hypertension; Negative Congestive Heart Failure RESPIRATORY: Positive Asthma; Negative Chronic Obstructive Pulmonary Disease (COPD) GASTROINTESTINAL: Positive Ulcerative Colitis, Obstructive Bowel (x3) and Gastroesophageal Reflux Disease GENITOURINARY: Negative Renal Disease ENDOCRINE: Negative Diabetes Mellitus Type 1 or Diabetes Mellitus Type 2 OTHER HISTORY: Negative Cancer Surgical History SURGICAL: Positive Abdominal Surgery (ileostomy) and Hysterectomy Social History SMOKING STATUS: Never smoker ED Exam Narrative Physical exam: Gen: A&O X 3, NAD HEENT: NCAT, EOMI, Pupils reactive JOSE, not icteric. External ears normal. No rhinorrhea. Moist mucous membranes. Tenderness with palpation in sinuses (frontal/maxilla Neck: Supple, full range of motion, no observable masses, No meningeal sign. Lungs: No Respiratory distress, mild inspiratory wheezing. CV: RRR, no murmurs. Abdomen: Soft, nondistended, No rebound tenderness. MSK: No joint swelling, no redness, peripheral pulses presents, lumbar with no edema. Skin: No rashes, petechiae, lesions.. Neuro: No focal neurological deficits appreciated, sensory and motor intact. Psych: Cooperative, appropriate mood and effect. Course Quality Measures none Orders Category Date Time Status Bedside COVID-19 Antigen Test NOW Care 03/03/25 13:46 Active Bedside Influenza A&B Antigen Test NOW Care 03/03/25 13:46 Completed EKG (ED ONLY) *Do not use* NOW Care 03/03/25 13:45 Completed EKG (ED Only) Stat Exams 03/03/25 13:45 Ordered XR chest 2V Stat Exams 03/03/25 13:45 Completed B-Type Natriuretic Peptide Stat Lab 03/03/25 14:11 Completed CBC Stat Lab 03/03/25 14:11 Completed Comprehensive Metabolic Panel Stat Lab 03/03/25 14:11 Completed Magnesium Stat Lab 03/03/25 14:11 Completed Troponin I Stat Lab 03/03/25 14:11 Completed Urinalysis Stat Lab 03/03/25 14:29 Completed Vital Signs Vital signs: Vital Signs Temperature 98.2 F 03/03/25 13:38 Pulse Rate 84 03/03/25 13:38 Respiratory Rate 18 03/03/25 13:38 Blood Pressure 152/83 H 03/03/25 13:38 Pulse Oximetry (%) 98 03/03/25 13:38 Oxygen Delivery Method Room Air 03/03/25 13:38 Discharge Plan Plan Patient Disposition: HOME (Self Care) Prescriptions/Referrals Prescriptions/Med Rec: No Action prednisone 50 mg tablet 50 mg PO QDAY Qty: 5 0RF ipratropium-albuterol 0.5 mg-3 mg(2.5 mg base)/3 mL solution for nebulization 3 ml inhalation QID PRN (Reason: wheezing) Qty: 90 0RF levofloxacin 500 mg tablet 500 mg PO Q24H 14 Days Qty: 14 0RF fluticasone propionate [Flonase Allergy Relief] 50 mcg/actuation spray,suspension 2 spray intranasal QDAY Qty: 11 0RF Rx Instructions: administer into each nostril ondansetron 8 mg tablet,disintegrating 8 mg PO Q8H PRN (Reason: nausea and vomiting) Qty: 30 0RF amoxicillin-pot clavulanate 875-125 mg tablet 1 tab PO BID Qty: 14 0RF promethazine-DM 6.25-15 mg/5 mL syrup 5 ml PO Q6H PRN (Reason: cough) Qty: 473 0RF Referrals: No Primary/Family,Physician [Primary Care Provider] - In 1 week Problem List Clinical Impression: Sinusitis Patient/Caregiver Discharge Instructions Other Activity Instructions:: Follow-up primary care physician within 5 days Recommend outpatient ENT Okay to take Tylenol every 6 hours for pain Continue taking recently prescribed Levaquin daily for total 2 weeks Come back to the ER if symptoms persist after the 2 weeks or if symptoms worsen Education Materials: Causes of Sinusitis, Anatomy Nasal, ED Sinusitis (No Antibiotics) Print Language: Indian Stand Alone Forms: [employer] Info., Patient Portal Info Letter MDM Narrative [facility] hospital course: 16:50: Patient was assessed after labs and imaging were reviewed. Vitals are stable. Patient stated that she has been having his congestion and facial pressure with cough for around 2 weeks and she decided to come back to the ED today as she was still persistently having the symptoms. She denies having any fever or any worsening symptoms shows that these symptoms have been the same event after starting the new antibiotic. 17:45: Spoke with patient concerning lab findings and imaging findings. At this time patient is stable enough to be discharged home with instructions to continue recently prescribed Levaquin for a total of 2 weeks, DuoNebs every 6 hours, and Tylenol every 6 hours for pain. Patient advised to come back to the ER if symptoms persist after the 2 weeks or if they worsen. Case disclosed with Attending Dr. Nic Shannon PGY2 Disclaimer: Even though this this note was dictated by speech recognition and even though it was carefully revised there may still be minor errors in door to door selling distributor due to voice recognition software.
[2025-03-03 17:55] VITALS: BP 146/88; PULSE 84; RESP 16; O2SAT 95
== END 2025-03-03 17:56 | disposition home or self-care (01) ==
PROVIDERS: Nurse Practitioner Family; Emergency Provider Family Medicine
DX: J32.9 Chronic sinusitis, unspecified (principal); I10 Essential (primary) hypertension; J45.909 Unspecified asthma, uncomplicated; R07.9 Chest pain, unspecified; R94.31 Abnormal electrocardiogram [ECG] [EKG]
CPT/HCPCS: 36415; 71046; 80053; 81001; 83735; 83880; 84484; 85025; 87400; 87811; 93005; 99283